=== PATIENT | male | born 1980 | race Caucasian/White ===

== ENCOUNTER 2017-08-18 12:02 | Inpatient (IN) | payer OTHER ==
[2017-08-18 14:45] VITALS: BMI 29.0
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
[2017-08-18] MEDS ORDERED: MENTHOL/PHENOL 1 EACH UD MM PRN (17:06)
[2017-08-18] MEDS ORDERED: MAGNESIUM CITRATE 300 ML BOTTLE PO PRN (17:06)
[2017-08-18] MEDS ORDERED: guaiFENesin/D-METHORPHAN HB 10 ML UNIT-DOSE CUPS PO PRN (17:06)
[2017-08-18] MEDS ORDERED: LOPERAMIDE HCL 2 MG CAPSULE PO PRN (17:06)
[2017-08-18] MEDS ORDERED: P-EPHED 60MG/TRIPROLIDI 2.5MG TABLET PO PRN (17:06)
[2017-08-18] MEDS ORDERED: ACETAMINOPHEN 325 MG TABLET (FP) PO PRN (17:06)
[2017-08-18] MEDS ORDERED: MAGNESIUM HYDROX 2400MG/30ML ORAL SUSPENSION 30 ML CUP PO PRN (17:06)
[2017-08-18] MEDS ORDERED: MAG HYDROX/AL HYDROX/SIMETH 30 ML UNIT-DOSE CUP PO PRN (17:06)
[2017-08-18] MEDS ORDERED: hydrOXYzine PAMOATE 50 MG CAPSULE (FP) PO PRN (17:06)
[2017-08-18] MEDS ORDERED: diazePAM 5 MG TABLET PO ONE (18:30)
[2017-08-18 22:00] LABS: URINE APPEARANCE CLEAR; URINE BILIRUBIN NEGATIVE (<2.0 mg/dL); URINE BLOOD NEGATIVE (NEGATIVE); URINE COLOR YELLOW; URINE GLUCOSE (UA) NEGATIVE (NEGATIVE); URINE KETONE NEGATIVE (NEGATIVE); URINE LEUK ESTERASE NEGATIVE (NEGATIVE); URINE NITRITE NEGATIVE (NEGATIVE); URINE PROTEIN NEGATIVE (NEGATIVE); URINE UROBILINOGEN NEGATIVE mg/dL (0.2-1.0)
[2017-08-18] MEDS: THIAMINE HCL 100 MG TABLET (FP) PO SCH (22:18)
[2017-08-18] MEDS: diazePAM 5 MG TABLET PO SCH (22:18)
[2017-08-18] MEDS: MELATONIN 5 MG TABLETS PO PRN (22:18)
[2017-08-19] MEDS: diazePAM 5 MG TABLET PO SCH ×3 (05:19→22:21)
[2017-08-19] MEDS ORDERED: METHADONE HCL 10 MG TABLET PO SCH (07:45)
[2017-08-19] MEDS ORDERED: METHADONE HCL 10 MG TABLET ONE (08:29)
[2017-08-19] MEDS ORDERED: METHADONE HCL 40 MG DISPERSABLE TABLET ONE (08:29)
[2017-08-19] MEDS: diazePAM 5 MG TABLET PO PRN ×3 (08:30→18:52)
[2017-08-19] MEDS: METHADONE 40 MG, METHADONE 10 MG PO SCH (08:30)
[2017-08-19 09:59] LABS: HEMOGLOBIN 12.4 GM/dL (11.7-16.9)
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
[2017-08-19 10:01] LABS: HEMATOCRIT 37.8 % (35.4-49); MCH 28.6 pg (25.7-33.7); MCHC 32.7 g/dl (32.0-35.9); MEAN CELL VOLUME 87.4 fl (80-96); MEAN PLT VOLUME 9.2 fl (7.5-11.1); PLATELET COUNT 225 K/MM3 (134-434); RBC 4.33 M/mm3 (4.00-5.60); RDW 15.2 % (11.9-15.9); WHITE BLOOD COUNT 8.3 K/mm3 (4.0-10.0)
[2017-08-19 10:26] LABS: CHLORIDE 111 mmol/L (98-107); POTASSIUM 4.2 mmol/L (3.5-5.1); SODIUM 143 mmol/L (136-145)
[2017-08-19] MEDS: NICOTINE POLACRILEX 2 MG GUM BC PRN (10:36)
[2017-08-19] MEDS: PRENATAL VITAMINS W/ FOLIC ACID TABLET (FP) PO SCH (10:37)
[2017-08-19] MEDS: NICOTINE 14 MG/24 HOURS TOPICAL PATCH TD SCH (10:39)
[2017-08-19 10:41] LABS: ALBUMIN 3.2 g/dl (3.4-5.0); ALK PHOS 79 U/L (45-117); ANION GAP 7 (8-16); BILIRUBIN,TOTAL 0.2 mg/dL (0.2-1.0); BLOOD UREA NITROGEN 13 mg/dL (7-18); CALCIUM 8.4 mg/dL (8.5-10.1); CO2 25 mmol/L (21-32); CREATININE 0.6 mg/dL (0.7-1.3); GLUCOSE,RANDOM 78 mg/dL (74-106); SGOT/AST 14 U/L (15-37); SGPT/ALT 23 U/L (12-78)
[2017-08-19 11:37] LABS: SICKLE CELL SCREEN NEGATIVE (NEGATIVE)
--- NOTE | 2017-08-19 13:32 | EKG ---
Test Reason : Blood Pressure : / mmHG Vent. Rate : 060 BPM Atrial Rate : 060 BPM P-R Int : 146 ms QRS Dur : 112 ms QT Int : 440 ms P-R-T Axes : 056 025 045 degrees QTc Int : 440 ms NORMAL SINUS RHYTHM NORMAL ECG NO PREVIOUS ECGS AVAILABLE Confirmed by LEXI MOREIRA MD ([id number]) on 08/19/2017 1:31:53 PM Referred By: Confirmed By:LEXI MOREIRA MD
--- NOTE | 2017-08-19 15:46 | PN ---
S CIWA - CIWA Score Nausea/Vomitin-No Nausea/No Vomiting Muscle Tremors: None Anxiety: 4-Mod. Anxious/Guarded Agitation: 2 Paroxysmal Sweats: 3 Orientation: 0-Oriented Tacttile Disturbances: 3-Moderate Itch/Numb/Burn Auditory Disturbances: 0-None Visual Disturbances: 3-Moderate Sensitivity Headache: 0-None Present CIWA-Ar Total Score: 15 BHS Progress Note (SOAP) Subjective: Sweating, Fatigue, Body aches, Interrupted Sleep. Objective: PATIENT A & O X 3, OBSERVED AMBULATING ON UNIT. NO ACUTE DISTRESS. 08/19/17 15:45 Vital Signs Temperature 97.3 F L 08/19/17 13:16 Pulse Rate 57 L 08/19/17 13:16 Respiratory Rate 18 08/19/17 13:16 Blood Pressure 110/69 08/19/17 13:16 O2 Sat by Pulse Oximetry (%) Laboratory Tests 08/18/17 08/19/17 08/19/17 19:00 07:00 07:00 WBC 8.3 RBC 4.33 Hgb 12.4 Hct 37.8 MCV 87.4 MCH 28.6 MCHC 32.7 RDW 15.2 Plt Count 225 MPV 9.2 Sickle Cell Screen Negative Sodium 143 Potassium 4.2 Chloride 111 H Carbon Dioxide 25 Anion Gap 7 L BUN 13 Creatinine 0.6 L Creat Clearance w eGFR > 60 Random Glucose 78 Calcium 8.4 L Total Bilirubin 0.2 AST 14 L ALT 23 Alkaline Phosphatase 79 Total Protein 6.0 L Albumin 3.2 L Urine Color Yellow Urine Appearance Clear Urine pH 5.0 Ur Specific [place] 1.026 Urine Protein Negative Urine Glucose (UA) Negative Urine Ketones Negative Urine Blood Negative Urine Nitrite Negative Urine Bilirubin Negative Urine Urobilinogen Negative Ur Leukocyte Esterase Negative HIV 1&2 Antibody Screen HIV P24 Antigen 08/19/17 07:00 WBC RBC Hgb Hct MCV MCH MCHC RDW Plt Count MPV Sickle Cell Screen Sodium Potassium Chloride Carbon Dioxide Anion Gap BUN Creatinine Creat Clearance w eGFR Random Glucose Calcium Total Bilirubin AST ALT Alkaline Phosphatase Total Protein Albumin Urine Color Urine Appearance Urine pH Ur Specific [place] Urine Protein Urine Glucose (UA) Urine Ketones Urine Blood Urine Nitrite Urine Bilirubin Urine Urobilinogen Ur Leukocyte Esterase HIV 1&2 Antibody Screen Negative HIV P24 Antigen Negative LABS NOTED. Assessment: 08/19/17 15:45 WITHDRAWAL SYMPTOMS. Plan: CONTINUE DETOX.
[2017-08-19] MEDS: IBUPROFEN 400 MG TABLET (FP) PO PRN (17:11)
[2017-08-19] MEDS: THIAMINE HCL 100 MG TABLET (FP) PO SCH (22:21)
[2017-08-19] MEDS: MELATONIN 5 MG TABLETS PO PRN (22:21)
[2017-08-20] MEDS ORDERED: METHADONE HCL 10 MG TABLET ONE (04:55)
[2017-08-20] MEDS ORDERED: METHADONE HCL 40 MG DISPERSABLE TABLET ONE (04:56)
[2017-08-20] MEDS: diazePAM 5 MG TABLET PO PRN ×2 (05:27→16:47)
[2017-08-20] MEDS: METHADONE 40 MG, METHADONE 10 MG PO SCH (05:27)
[2017-08-20] MEDS: IBUPROFEN 400 MG TABLET (FP) PO PRN ×2 (08:47→16:48)
[2017-08-20] MEDS: CYCLOBENZAPRINE HCL 5 MG TABLET PO PRN (08:47)
[2017-08-20] MEDS: PRENATAL VITAMINS W/ FOLIC ACID TABLET (FP) PO SCH (09:45)
[2017-08-20] MEDS: diazePAM 5 MG TABLET PO SCH ×2 (09:46→22:13)
[2017-08-20] MEDS: NICOTINE 14 MG/24 HOURS TOPICAL PATCH TD SCH (09:46)
[2017-08-20] MEDS: NICOTINE POLACRILEX 2 MG GUM BC PRN ×3 (09:46→21:00)
--- NOTE | 2017-08-20 16:30 | PN ---
[facility] CIWA - CIWA Score Nausea/Vomitin-No Nausea/No Vomiting Muscle Tremors: None Anxiety: 4-Mod. Anxious/Guarded Agitation: 4-Moderately Restless Paroxysmal Sweats: 3 Orientation: 0-Oriented Tacttile Disturbances: 2-Mild Itch/Numbness/Burn Auditory Disturbances: 1-Very Mild Visual Disturbances: 2-Mild Sensitivity Headache: 0-None Present CIWA-Ar Total Score: 16 BHS Progress Note (SOAP) Subjective: Sweating, Body Aches, Interrupted Sleep. Objective: PATIENT A & O X 3, OBSERVED AMBULATING ON UNIT. NO ACUTE DISTRESS. 08/20/17 16:28 Vital Signs Temperature 96.0 F L 08/20/17 09:13 Pulse Rate 60 08/20/17 09:13 Respiratory Rate 20 08/20/17 09:13 Blood Pressure 119/83 08/20/17 09:13 O2 Sat by Pulse Oximetry (%) Laboratory Tests 08/18/17 08/19/17 08/19/17 19:00 07:00 07:00 WBC 8.3 RBC 4.33 Hgb 12.4 Hct 37.8 MCV 87.4 MCH 28.6 MCHC 32.7 RDW 15.2 Plt Count 225 MPV 9.2 Sickle Cell Screen Negative Sodium 143 Potassium 4.2 Chloride 111 H Carbon Dioxide 25 Anion Gap 7 L BUN 13 Creatinine 0.6 L Creat Clearance w eGFR > 60 Random Glucose 78 Calcium 8.4 L Total Bilirubin 0.2 AST 14 L ALT 23 Alkaline Phosphatase 79 Total Protein 6.0 L Albumin 3.2 L Urine Color Yellow Urine Appearance Clear Urine pH 5.0 Ur Specific [place] 1.026 Urine Protein Negative Urine Glucose (UA) Negative Urine Ketones Negative Urine Blood Negative Urine Nitrite Negative Urine Bilirubin Negative Urine Urobilinogen Negative Ur Leukocyte Esterase Negative RPR Titer HIV 1&2 Antibody Screen HIV P24 Antigen 08/19/17 08/19/17 07:00 07:00 WBC RBC Hgb Hct MCV MCH MCHC RDW Plt Count MPV Sickle Cell Screen Sodium Potassium Chloride Carbon Dioxide Anion Gap BUN Creatinine Creat Clearance w eGFR Random Glucose Calcium Total Bilirubin AST ALT Alkaline Phosphatase Total Protein Albumin Urine Color Urine Appearance Urine pH Ur Specific [place] Urine Protein Urine Glucose (UA) Urine Ketones Urine Blood Urine Nitrite Urine Bilirubin Urine Urobilinogen Ur Leukocyte Esterase RPR Titer Nonreactive HIV 1&2 Antibody Screen Negative HIV P24 Antigen Negative LABS NOTED. Assessment: 08/20/17 16:28 WITHDRAWAL SYMPTOMS. Plan: CONTINUE DETOX. INCREASE DAILY PO FLUID INTAKE.
[2017-08-20] MEDS: THIAMINE HCL 100 MG TABLET (FP) PO SCH (22:13)
[2017-08-20] MEDS: MELATONIN 5 MG TABLETS PO PRN (22:14)
[2017-08-21] MEDS: IBUPROFEN 400 MG TABLET (FP) PO PRN (00:25)
[2017-08-21] MEDS: diazePAM 5 MG TABLET PO PRN ×3 (00:25→16:31)
[2017-08-21] MEDS ORDERED: METHADONE HCL 10 MG TABLET ONE (05:08)
[2017-08-21] MEDS ORDERED: METHADONE HCL 40 MG DISPERSABLE TABLET ONE (05:08)
[2017-08-21] MEDS: METHADONE 40 MG, METHADONE 10 MG PO SCH (05:24)
[2017-08-21] MEDS: PRENATAL VITAMINS W/ FOLIC ACID TABLET (FP) PO SCH (10:35)
[2017-08-21] MEDS: diazePAM 5 MG TABLET PO SCH ×2 (10:35→22:40)
[2017-08-21] MEDS: NICOTINE 14 MG/24 HOURS TOPICAL PATCH TD SCH (10:35)
[2017-08-21] MEDS: NICOTINE POLACRILEX 2 MG GUM BC PRN (12:19)
--- NOTE | 2017-08-21 17:01 | PN ---
BHS Progress Note (SOAP) Subjective: Sweating, Anxious. Objective: PATIENT A & O X 3, OBSERVED AMBULATING ON UNIT. NO ACUTE DISTRESS. 08/21/17 16:59 Vital Signs Temperature 96.6 F L 08/21/17 11:32 Pulse Rate 81 08/21/17 11:32 Respiratory Rate 20 08/21/17 11:32 Blood Pressure 117/80 08/21/17 11:32 O2 Sat by Pulse Oximetry (%) Laboratory Tests 08/18/17 08/19/17 08/19/17 19:00 07:00 07:00 WBC 8.3 RBC 4.33 Hgb 12.4 Hct 37.8 MCV 87.4 MCH 28.6 MCHC 32.7 RDW 15.2 Plt Count 225 MPV 9.2 Sickle Cell Screen Negative Sodium 143 Potassium 4.2 Chloride 111 H Carbon Dioxide 25 Anion Gap 7 L BUN 13 Creatinine 0.6 L Creat Clearance w eGFR > 60 Random Glucose 78 Calcium 8.4 L Total Bilirubin 0.2 AST 14 L ALT 23 Alkaline Phosphatase 79 Total Protein 6.0 L Albumin 3.2 L Urine Color Yellow Urine Appearance Clear Urine pH 5.0 Ur Specific [place] 1.026 Urine Protein Negative Urine Glucose (UA) Negative Urine Ketones Negative Urine Blood Negative Urine Nitrite Negative Urine Bilirubin Negative Urine Urobilinogen Negative Ur Leukocyte Esterase Negative RPR Titer HIV 1&2 Antibody Screen HIV P24 Antigen 08/19/17 08/19/17 07:00 07:00 WBC RBC Hgb Hct MCV MCH MCHC RDW Plt Count MPV Sickle Cell Screen Sodium Potassium Chloride Carbon Dioxide Anion Gap BUN Creatinine Creat Clearance w eGFR Random Glucose Calcium Total Bilirubin AST ALT Alkaline Phosphatase Total Protein Albumin Urine Color Urine Appearance Urine pH Ur Specific [place] Urine Protein Urine Glucose (UA) Urine Ketones Urine Blood Urine Nitrite Urine Bilirubin Urine Urobilinogen Ur Leukocyte Esterase RPR Titer Nonreactive HIV 1&2 Antibody Screen Negative HIV P24 Antigen Negative LABS NOTED. Assessment: 08/21/17 17:00 WITHDRAWAL SYMPTOMS. Plan: CONTINUE DETOX.
[2017-08-21] MEDS: THIAMINE HCL 100 MG TABLET (FP) PO SCH (22:40)
[2017-08-21] MEDS: MELATONIN 5 MG TABLETS PO PRN (22:40)
[2017-08-22] MEDS: CYCLOBENZAPRINE HCL 5 MG TABLET PO PRN (00:40)
[2017-08-22] MEDS ORDERED: METHADONE HCL 10 MG TABLET ONE (04:58)
[2017-08-22] MEDS ORDERED: METHADONE HCL 40 MG DISPERSABLE TABLET ONE (04:59)
[2017-08-22] MEDS: METHADONE 40 MG, METHADONE 10 MG PO SCH (05:35)
[2017-08-22 06:17] VITALS: BP 106/64; PULSE 58; TEMP 96.6
--- NOTE | 2017-08-22 08:59 | DS ---
[facility] Detox Discharge Summary Admission Date: 08/18/17 Discharge Date: 08/22/17 - History Present History: Cocaine Dependence, Sedative Dependence, MMTP - Physical Exam Results Vital Signs: Vital Signs Temperature 96.6 F L 08/22/17 06:17 Pulse Rate 58 L 08/22/17 06:17 Respiratory Rate 18 08/22/17 06:17 Blood Pressure 106/64 08/22/17 06:17 O2 Sat by Pulse Oximetry (%) - Treatment Hospital Course: Detox Protocol Followed, Detoxed Safely, Responded well, Discharged Condition Good, Rehab Referral Accepted - Medication Discharge Medications: Ambulatory Orders NK [No Known Home Medication] 08/18/17 - Diagnosis (1) Back pain Current Visit: Yes Status: Acute Qualifiers: Back pain location: low back pain Chronicity: unspecified Back pain laterality: midline Sciatica presence: without sciatica Qualified Code(s): M54.5 - Low back pain (2) Cocaine dependence Current Visit: Yes Status: Chronic Qualifiers: Substance use status: uncomplicated Qualified Code(s): F14.20 - Cocaine dependence, uncomplicated (3) Difficulty sleeping Current Visit: Yes Status: Acute (4) Insomnia Current Visit: Yes Status: Acute Qualifiers: Insomnia type: unspecified Qualified Code(s): G47.00 - Insomnia, unspecified (5) Marijuana dependence Current Visit: Yes Status: Chronic (6) Sedative, hypnotic or anxiolytic dependence with withdrawal, uncomplicated Current Visit: Yes Status: Chronic (7) Weight loss Current Visit: Yes Status: Acute (8) Methadone maintenance therapy patient Current Visit: Yes Status: Chronic - AMA Did Patient Leave Against Medical Advice: No
[2017-08-22] MEDS ORDERED: diazePAM 5 MG TABLET PO SCH (10:00)
== END 2017-08-22 09:45 | disposition home or self-care (01) | DRG 773 ==
LOC: YASAS 12:02 → Y3N 17:57
PROVIDERS: ADMIT Internal Medicine; ATTEND Internal Medicine
PROC: HZ2ZZZZ Detoxification Services for Substance Abuse Treatment (ICD-10-PCS; principal; 2017-08-18)
DX: F11.20 Opioid dependence, uncomplicated (principal); F13.230 Sedative, hypnotic or anxiolytic dependence with withdrawal, uncomplicated; F14.20 Cocaine dependence, uncomplicated; F43.10 Post-traumatic stress disorder, unspecified; F32.9 Major depressive disorder, single episode, unspecified; F41.9 Anxiety disorder, unspecified; G47.00 Insomnia, unspecified; M54.5 Low back pain; R63.4 Abnormal weight loss; Z68.29 Body mass index [BMI] 29.0-29.9, adult
CPT/HCPCS: 36415; 80053; 81003; 85027; 85660; 86593; 87389; 93005; 93010

== ENCOUNTER 2017-08-23 13:56 | Inpatient (IN) | payer OTHER ==
[2017-08-23 16:40] VITALS: BMI 29.9
[2017-09-06 06:49] VITALS: BP 107/90; PULSE 79; TEMP 97.7
== END 2017-09-06 11:00 | disposition home or self-care (01) | DRG 772 ==
LOC: YASAS 13:56 → Y5N 18:31
PROVIDERS: ADMIT Psychiatry & Neurology Psychiatry; ATTEND Psychiatry & Neurology Psychiatry
PROC: HZ42ZZZ Group Counseling for Substance Abuse Treatment, Cognitive-Behavioral (ICD-10-PCS; principal; 2017-08-23)
DX: F11.20 Opioid dependence, uncomplicated (principal); F13.20 Sedative, hypnotic or anxiolytic dependence, uncomplicated; F14.20 Cocaine dependence, uncomplicated; F12.20 Cannabis dependence, uncomplicated; F43.10 Post-traumatic stress disorder, unspecified; F31.9 Bipolar disorder, unspecified; M54.5 Low back pain; D72.829 Elevated white blood cell count, unspecified; R50.9 Fever, unspecified
CPT/HCPCS: 36415; 71046-TC-FY; 81003; 81015; 85025; 85027; 93005; 93010